=== PATIENT | male | born 1990 | race Caucasian/White ===

== ENCOUNTER 2022-03-05 20:22 | Emergency (ER) | payer SELFPAY ==
[~2022-03-05] VITALS: Ht 175.3 cm; Wt 92.7 kg
[2022-03-05 20:31] VITALS: BP 135/98
== END 2022-03-05 21:56 | disposition left against medical advice (07) ==
LOC: EDBD 20:22 → ER 20:22
DX: R07.89 Other chest pain (principal); R00.2 Palpitations; R06.02 Shortness of breath; Z53.29 Procedure and treatment not carried out because of patient's decision for other reasons
CPT/HCPCS: 93005